=== PATIENT | female | born 1960 ===

== ENCOUNTER 2018-03-07 09:42 | Day surgery (SDC) | payer MEDICAID ==
[2015-11-29 12:14] VITALS: BMI 35.6
--- NOTE | 2018-03-07 11:25 | CP.SDSHP ---
Same Day Surgery H & P - History Proposed Procedure: egd/colon Pre-Op Diagnosis: gerd. abdo pain. brbpr - Allergies Allergies: Allergies morphine Allergy (Verified 03/07/18 10:01) RASH - Physical Exam Vital Signs: Vital Signs 03/07/18 10:10 Temperature 97.8 F Pulse Rate 68 Respiratory 19 Rate Blood Pressure 144/67 O2 Sat by Pulse 97 Oximetry Mental Status: Alert & Oriented x3 Neuro: WNL Heart: WNL Lungs: WNL GI: WNL - {Optional Preform as Required} Abdomen: WNL - Impression Impression: gerd. brbpr. abdo pain. egd/colon Pt. Evaluated Today:Candidate for Anesthesia & Procedure: Yes - Date & Time Date: 03/07/18 Time: 11:24 Short Stay Discharge - Short Stay Discharge Admitting Diagnosis/Reason for Visit: GASTRO ESOPHAGEAL REFLUX DISEASE WITHOUT ESOPHAGIT Disposition: HOME/ ROUTINE Referrals: Melissa Gill MD [Primary Care Provider] -
[2018-03-07] MEDS ORDERED: Propofol 10 mg/ml Inj (20 ML) ONE ×2 (11:26→11:49)
[2018-03-07] MEDS ORDERED: Lidocaine Hydrochloride 5 ML INJ ONE (11:26)
[2018-03-07 13:47] VITALS: BP 146/78; PULSE 75; RESP 16; O2SAT 99
[2018-03-07 13:55] VITALS: TEMP 97.9
== END 2018-03-07 13:40 | disposition home or self-care (01) ==
LOC: C.ENDO 09:42
PROVIDERS: ATTEND Internal Medicine
DX: K57.30 Diverticulosis of large intestine without perforation or abscess without bleeding (principal); K21.9 Gastro-esophageal reflux disease without esophagitis; R19.4 Change in bowel habit; K62.5 Hemorrhage of anus and rectum; K22.2 Esophageal obstruction; K44.9 Diaphragmatic hernia without obstruction or gangrene; K29.70 Gastritis, unspecified, without bleeding
CPT/HCPCS: 43239; 45378; 88305; 88312; 88313; 88342; J2704